=== PATIENT | female | born 1955 | race Caucasian/White ===

== ENCOUNTER 2016-10-19 07:58 | Day surgery (SDC) | payer MEDICAID ==
[2016-10-19] MEDS ORDERED: PROPOFOL 10 MG/ML VIAL IV ONE (14:00)
[2016-10-19] MEDS ORDERED: MIDAZOLAM HCL 2MG/2ML VIAL IV ONE (14:00)
[2016-10-19] MEDS ORDERED: LIDOCAINE 2% MDV (20MG/ML) 20ML VIAL IV ONE (14:00)
--- NOTE | 2016-10-24 11:19 | Operative Note ---
DATE OF SURGERY: 10/19/2016 OPERATION: COLONOSCOPY with random biopsy and biopsy of a colonic nodule. PREOPERATIVE DIAGNOSIS: Crohn's. POSTOPERATIVE DIAGNOSES: 1. Surgically shortened colon. 2. Colon nodule, no obvious inflammation noted. PROCEDURE: After informed consent was obtained from the patient, she was placed in the left lateral decubitus position in the endoscopy suite, sedated and monitored by the department of anesthesia. Digital rectal exam was unremarkable. A well-lubricated [id number] colonoscope was inserted into the rectum and advanced to the cecum. The colon appeared to be surgically shortened. The cecum was intubated at 35-40 cm. There were some scarring changes in the area of the cecum. Biopsies were obtained in 4 quadrants every 10 cm. In addition, there was a nodule at approximately 25 cm of unclear significance. This was biopsied. This appeared to be an inflammatory nodule. The remainder of the colon otherwise appeared unremarkable. No other abnormalities were noted. J-turn view was not performed given the narrowed rectal vault. RECOMMENDATIONS: We will await for results of tissue histology. In the meantime, we will have the patient scheduled for a CT enterogram given the fact she has had bouts of what sounds like small bowel obstruction. As always, thank you for allowing me to participate in the healthcare of your patients. CC: Dr. Khadar RICH
== END 2016-10-19 10:46 | disposition home or self-care (01) ==
LOC: HOP 07:58
PROVIDERS: ATTEND Internal Medicine Gastroenterology
DX: K63.89 Other specified diseases of intestine (principal); Z79.01 Long term (current) use of anticoagulants; Z90.49 Acquired absence of other specified parts of digestive tract; I10 Essential (primary) hypertension

== ENCOUNTER 2018-04-27 17:47 | Emergency (ER) | payer MEDICAID, MEDICARE ==
[2018-04-27 18:03] LABS: URINE APPEARANCE SL CLOUDY; URINE BILIRUBIN NEGATIVE (NEGATIVE); URINE BLOOD SMALL (NEGATIVE); URINE COLOR YELLOW; URINE GLUCOSE (UA) NEGATIVE (NEGATIVE); URINE KETONE NEGATIVE (NEGATIVE); URINE LEUKOCYTE ESTERASE MODERATE (NEGATIVE); URINE NITRITE NEGATIVE (NEGATIVE); URINE PROTEIN NEGATIVE (NEGATIVE); URINE UROBILINOGEN 0.2 E.U./dL (0.20 - 1.00)
--- NOTE | 2018-04-27 18:11 | Emergency Department Record ---
History of Present Illness - General Chief complaint: Flank Pain Stated complaint: UTI Time Seen by Provider: 04/27/18 18:03 Source: Patient Mode of Arrival: Ambulatory Limitations: No limitations - History of Present Illness Initial comments: 63yo female presents with recurrent frequency and discomfort with urination. She has a history of multiple recurrent UTI's in the last year. She has been on antibiotics in the last month. She admits she only took the Bactrim once daily instead of twice daily because she get diarrhea from most antibiotics. She did complete a one week course of Bactrim once daily. The symptoms never completely resolved. She has had some left flank pain for about 5-6 months. She had an US in December that was negative of the renals. Her most recent urine culture earlier in March was positive for Klebsiella. NO fevers or chills. No nausea or vomiting. She is on Elizabeth for Crohn's and Coumadin. She has normal appetite. PCP is the [facility]. MD Complaint: Dysuria Onset/Timin -: Days(s) Radiation: L flank Severity: Moderate Severity scale (1-10): 7 Quality: Aching Consistency: Constant Improves with: None Worsens with: Urination - Related Data Home Medications Medication Instructions Recorded Confirmed Last Taken Metoprolol Tartrate 1 tab PO DAILY 04/27/18 04/27/18 04/27/18 Previous Rx's Medication Instructions Recorded Cephalexin [Keflex] 500 mg PO TID #30 cap 04/27/18 Allergies Allergy/AdvReac Type Severity Reaction Status Date / Time promethazine HCl Allergy Severe DIFFICULTY Verified 04/27/18 17:56 [From Phenergan] BREATHING clindamycin Allergy Mild RASH Verified 04/27/18 17:56 erythromycin base Allergy Mild RASH & Verified 04/27/18 17:56 stomach cramps Sulfa (Sulfonamide Allergy Mild RASH Verified 04/27/18 17:56 Antibiotics) tetracycline Allergy Mild rash & Verified 04/27/18 17:56 stomach cramps epinephrine AdvReac Severe PROLONGED Verified 04/27/18 17:56 TACHYCARDIA ciprofloxacin [From Cipro] AdvReac Intermediate VOMITING Verified 04/27/18 17:56 ciprofloxacin HCl AdvReac Intermediate VOMITING Verified 04/27/18 17:56 [From Cipro] metronidazole [From Flagyl] AdvReac Intermediate VOMITING Verified 04/27/18 17: 56 ketorolac tromethamine AdvReac Mild NAUSEA Verified 04/27/18 17:56 [From Toradol] Travel Screening - Travel/Exposure Within Last 30 Days Have you traveled within the last 30 days?: No Review of Systems Constitutional: Denies: Chills, Fever, Weakness Eyes: Denies: Eye discharge ENT: Denies: Congestion Respiratory: Denies: Cough, Dyspnea, Hemoptysis, Stridor, Wheezes Cardiovascular: Denies: Chest pain, Palpitations, Syncope Endocrine: Denies: Fatigue Gastrointestinal: Reports: Abdominal pain. Denies: Diarrhea, Nausea, Vomiting Genitourinary: Reports: Dysuria, Frequency. Denies: Hematuria Musculoskeletal: Reports: As per HPI, Back pain Skin: Denies: Bruising, Change in color, Rash Neurological: Denies: Headache Psychiatric: Denies: Anxiety Past Medical History - SOCIAL HISTORY Smoking Status: Never smoker Alcohol Use: Occasional Drug Use: None - RESPIRATORY Hx Respiratory Disorders: Yes Hx COPD: Yes ("mild") - CARDIOVASCULAR Hx Cardio Disorders: Yes Hx Deep Vein Thrombosis: Yes (1994 in heart, chanelle filter -> no problems since) Hx Hypertension: Yes Hx Irregular Heartbeat: Yes ("beats fast and then slows down") Hx Palpitations: Yes Comment:: "bicuspid aortic valve" - NEURO Hx Neuro Disorders: Yes Hx Headaches: Yes (OCCULAR MIGRAINES) - GI Hx GI Disorders: Yes Hx Abdominal Pain: Yes Hx Crohn's Disease: Yes Hx Reflux: Yes Hx Nausea/Vomiting: Yes Hx Rectal Bleeding: Yes Comment:: CONSTIPATION - Hx Genitourinary Disorders: Yes Hx UTI: Yes - ENDOCRINE Hx Endocrine Disorders: Yes Hx Thyroid Disease: Yes (nodules) - MUSCULOSKELETAL Hx Musculoskeletal Disorders: Yes Hx Arthritis: Yes (Rheumatoid) Hx Musculoskeletal Disease: Yes (DDD) Comment:: Rauynauds - PSYCH Hx Psych Problems: Yes Hx Anxiety: Yes - HEMATOLOGY/ONCOLOGY Hx Hematology/Oncology Disorders: Yes Hx Anemia: Yes (iron infusion in 2013) Hx Blood Transfusions: Yes (07/2010) Hx Blood Transfusion Reaction: No Family Medical History Any Significant Family History?: Yes Hx Cancer: Grandparents *Cancer Comment: colon Hx Dementia: Mother Hx Diabetes: Grandparents Hx Stroke: Mother Physical Exam - General General Appearance: Alert, Oriented x3, Cooperative, Other (Well appearing) Limitations: No limitations - Head Head exam: Atraumatic, Normal inspection - Eye Eye exam: Normal appearance. negative: Conjunctival injection - ENT ENT exam: Normal exam, Mucous membranes moist Ear exam: Normal external inspection Nasal Exam: Normal inspection Mouth exam: Normal external inspection - Neck Neck exam: Normal inspection - Respiratory Respiratory exam: Normal lung sounds bilaterally. negative: Respiratory distress - Cardiovascular Cardiovascular Exam: Regular rate, Normal rhythm, Normal heart sounds - GI/Abdominal GI/Abdominal exam: Soft. negative: Guarding, Tenderness - Rectal Rectal exam: Deferred - exam: Deferred - Extremities Extremities exam: Normal inspection, Full ROM, Normal capillary refill. negative: Tenderness - Back Back exam: Reports: CVA tenderness (L) - Neurological Neurological exam: Alert, Oriented X3 - Psychiatric Psychiatric exam: Normal affect, Normal mood Course Vital Signs 04/27/18 17:57 Temperature 97.6 F Pulse Rate 91 H Respiratory 20 Rate Blood Pressure 122/77 Pulse Ox 100 - Reevaluation(s) Reevaluation #1: 04/27/18 18:11 EMR reviewed US negative in February UCx in March grew Klebsiella Pneumonia Sensitive to all but Ampicillin 04/27/18 18:37 The CBC was unremarkable for significant changes The US was LE positive with WBC's. No bacteria. The UA results may be altered due to her recent antibiotic use that was incomplete at only once daily dosing. 04/27/18 18:51 No changes on the BMP INR is 2.9 04/27/18 21:14 We discussed the results and plan of care for antibiotics, antibiotic compliance , very close follow up and reasons to be seen immediately. She is well aware of her medications causing immune depression and coumadin changes on antibiotics. She will call her doctor on Sunday. She is very aware that she will need to be seen immediately if worse, fever, vomiting or any new concerns Medical Decision Making - Lab Data Result diagrams: 04/27/18 18:16 04/27/18 18:16 Lab Results 04/27/18 Range/Units 17:51 Urine Color Yellow Urine Appearance Sl cloudy Urine pH 7.0 (5.0-8.0) Ur Specific [place] 1.010 (1.002-1.030) Urine Protein Negative (NEGATIVE) Urine Glucose (UA) Negative (NEGATIVE) Urine Ketones Negative (NEGATIVE) Urine Blood Small H (NEGATIVE) Urine Nitrite Negative (NEGATIVE) Urine Bilirubin Negative (NEGATIVE) Urine Urobilinogen 0.2 (0.20 - 1.00) E.U./dL Ur Leukocyte Esterase Moderate H (NEGATIVE) Disposition Disposition: Discharge Clinical Impression: Urinary tract infection Qualifiers: Urinary tract infection type: site unspecified Hematuria presence: without hematuria Qualified Code(s): N39.0 - Urinary tract infection, site not specified Disposition: Home, Self-Care Condition: (1) Good Instructions: Urinary Tract Infection in Women (ED), Flank Pain (ED) Additional Instructions: Return or be seen immediately if worse, fever, pain, vomiting Take the medication as directed Call your doctor on Sunday to confirm the urology follow up referral Check your INR first of the week with Howard in the pharmacy Prescriptions: Cephalexin [Keflex] 500 mg PO TID #30 cap Forms: Patient Portal Access Time of Disposition: 19:56 Quality - Quality Measures Quality Measures: N/A - Blood Pressure Screening Does Patient Have Any of the Following: No Blood Pressure Classification: Pre-Hypertensive BP Reading Systolic Measurement: 120 Diastolic Measurement: 80 Screening for High Blood Pressure: < Pre-Hypertensive BP, F/U Documented > [ [id number]] Pre-Hypertensive Follow-up Interventions: Referral to alternative/primary care provider.
[2018-04-27 18:24] LABS: BASO % 0.4 % (0-6); GRAN % 60.9 % (47-80); HEMATOCRIT 38.4 % (35.0-47.0); HEMOGLOBIN 12.7 gm/dl (11.6-16.0); LYMPH % 30.4 % (16-45); MEAN CELL VOLUME 97.2 fl (81-97); MEAN CORPUSCULAR HEMOGLOBIN 32.2 pg (27-33); MEAN CORPUSCULAR HGB CONC 33.1 g/dl (32-36); MEAN PLATELET VOLUME 10.1 fl (7.4-10.4); MONO % 7.3 % (0-9); PLATELET COUNT 323 K/uL (130-400); RED BLOOD COUNT 3.95 M/uL (3.80-5.40); RED CELL DISTRIBUTION WIDTH 12.5 % (11.5-14.5); WHITE BLOOD COUNT W/O DIFF 7.8 K/uL (4.2-12.2)
[2018-04-27 18:25] LABS: URINE BACTERIA NONE SEEN; URINE EPITHELIAL CELLS 0 - 2 (FEW); URINE RBC 0 - 2 (NONE SEEN)
[2018-04-27 18:35] LABS: INR 2.9; PROTHROMBIN TIME (PATIENT) 28.7 SECONDS (9.5-12.1)
[2018-04-27 18:38] LABS: BLOOD UREA NITROGEN 16 mg/dL (8-23); CREATININE 0.8 mg/dL (0.5-0.9); EST GLOMERULAR FILTRATION RATE > 60 mL/min
[2018-04-27 18:41] LABS: GLUCOSE,RANDOM 90 mg/dL (74-109)
[2018-04-27] MEDS ORDERED: CEPHALEXIN 500 MG CAPSULE PO STA ×2 (19:54)
--- NOTE | 2018-04-29 10:35 | CT SCAN REPORT ---
EXAM: CT OF THE ABDOMEN AND PELVIS WITHOUT IV CONTRAST HISTORY: LEFT FLANK PAIN. TECHNIQUE: CT of the abdomen and pelvis without IV contrast was obtained. Comparison: CT of the abdomen and pelvis 10/20/16. FINDINGS: The lung bases show minimal linear bands of scar in the left lower lobe. Limited evaluation of the solid organs without intravenous contrast. The liver has upper normal size. The spleen has normal size. No peripancreatic inflammatory changes. The kidneys have normal size. No renal calculi, hydronephrosis, or perinephric fat stranding. No stones in the ureters. No stones in the urinary bladder. Post surgical changes are again seen in the bowel with ileocolic anastomosis in the mid abdomen. No abnormal bowel dilatation. An inferior vena cava filter is again seen. No ascites or adenopathy. The bony structures show mild degenerative changes of the spine. IMPRESSION: 1. NO EVIDENCE OF UROLITHIASIS OR OBSTRUCTIVE UROPATHY. 2. POST SURGICAL CHANGES OF BOWEL RESECTION ARE SIMILAR TO PREVIOUS EXAMINATION. JOB NUMBER: [id number] [facility]
== END 2018-04-27 20:05 | disposition home or self-care (01) ==
LOC: ER 17:47
DX: N39.0 Urinary tract infection, site not specified (principal); R30.0 Dysuria; R10.9 Unspecified abdominal pain; I10 Essential (primary) hypertension
CPT/HCPCS: 74176; 80048; 81001; 85025; 85610; 99283; 99284

== ENCOUNTER 2018-06-12 06:52 | Day surgery (SDC) | payer MEDICARE, MEDICAID ==
[2018-06-12] MEDS ORDERED: LIDOCAINE 1% W/EPI 1:200,000 MPF 30ML SQ ONE (06:53)
[2018-06-12] MEDS ORDERED: LIDOCAINE 2% MDV (20MG/ML) 20ML VIAL IV ONE (06:53)
[2018-06-12] MEDS ORDERED: FENTANYL PF 100MCG/2ML VIAL IV ONE (06:53)
[2018-06-12] MEDS ORDERED: ONDANSETRON HCL IV 4 MG/2 ML VIAL IVP ONE (06:53)
[2018-06-12] MEDS ORDERED: PROPOFOL 10 MG/ML VIAL IV ONE (06:53)
[2018-06-12] MEDS ORDERED: DEXAMETHASONE PRESERVATIVE FREE 10MG/ML VIAL IV ONE (06:53)
[2018-06-12] MEDS ORDERED: MIDAZOLAM HCL 2MG/2ML VIAL IV ONE (06:53)
[2018-06-12] MEDS ORDERED: BUPIVACAINE 0.5% (5MG/ML) PF 30ML VIAL IVP ONE (06:53)
[2018-06-12] MEDS ORDERED: BUPIVACAINE 0.5% W/EPI MPF 30 ML VIAL IVP ONE (06:53)
--- NOTE | 2018-06-13 17:11 | Operative Note - Ferro ---
DATE OF SURGERY: 06/12/18 PRIMARY: DR. DE LA CRUZ. PREOPERATIVE DIAGNOSES: 1. LUMBAR SPONDYLOSIS WITHOUT MYELOPATHY, ICD-10 CODE = M47.816. 2. ROTOSCOLIOSIS THORACIC AND LUMBAR SPINE, ICD-10 CODE = M41.25. OPERATION: FLUOROSCOPICALLY-GUIDED INFILTRATIONAL BLOCK BILATERAL LUMBAR FACETS 3-4, 4-5, AND 5-1. SURGEON: KAT BACON D.O. ANESTHESIA: LOCAL WITH SEDATION. ANESTHESIA PROVIDER: PATY WYMAN CRNA. PROCEDURE: Intravenous line, vital sign monitoring, IV sedation, prepped, draped, sterile technique. Lumbar facet levels in the area of pain were identified and marked 3-4, 4-5, and 5-1 bilateral. Each one of these points on the skin infiltrated. A 22-gauge, 3.5 inch needle into the facet with 1 mL of 0.5% Marcaine and Dexamethasone injected; this was repeated bilaterally. All areas cleaned. Topical antibiotic. Sterile dressing applied. We will monitor and evaluate. cc: Dr. De La Cruz JOB NUMBER: [id number] [facility]
== END 2018-06-12 09:00 | disposition home or self-care (01) ==
LOC: SUR 06:52
PROVIDERS: ATTEND Pain Medicine Interventional Pain Medicine
DX: M47.816 Spondylosis without myelopathy or radiculopathy, lumbar region (principal); M41.25 Other idiopathic scoliosis, thoracolumbar region; I10 Essential (primary) hypertension; Z79.01 Long term (current) use of anticoagulants; M06.9 Rheumatoid arthritis, unspecified; K50.90 Crohn's disease, unspecified, without complications; J44.9 Chronic obstructive pulmonary disease, unspecified; Z86.718 Personal history of other venous thrombosis and embolism
CPT/HCPCS: 01936; 64493; 64494; 64495; J2405; J1100; J3010

== ENCOUNTER 2018-08-14 06:23 | Day surgery (SDC) | payer MEDICARE, MEDICAID ==
[2018-08-14] MEDS ORDERED: DEXAMETHASONE PRESERVATIVE FREE 10MG/ML VIAL IV ONE (06:24)
[2018-08-14] MEDS ORDERED: MIDAZOLAM HCL 2MG/2ML VIAL IV ONE (06:24)
[2018-08-14] MEDS ORDERED: FENTANYL PF 100MCG/2ML VIAL IV ONE (06:24)
[2018-08-14] MEDS ORDERED: PROPOFOL 10 MG/ML VIAL IV ONE (06:24)
[2018-08-14] MEDS ORDERED: ONDANSETRON HCL IV 4 MG/2 ML VIAL IVP ONE (06:24)
[2018-08-14] MEDS ORDERED: BUPIVACAINE 0.5% W/EPI MPF 30 ML VIAL IVP ONE (06:24)
[2018-08-14] MEDS ORDERED: LIDOCAINE 1% W/EPI 1:200,000 MPF 30ML SQ ONE (06:24)
[2018-08-14] MEDS ORDERED: LIDOCAINE 2% MDV (20MG/ML) 20ML VIAL IV ONE (06:24)
--- NOTE | 2018-08-16 14:02 | Operative Note ---
DATE OF SURGERY: 08/14/2018. PRIMARY CARE PHYSICIAN: Leonardo Crespo M.D. PREOPERATIVE DIAGNOSIS: 1. LUMBAR SPONDYLOSIS WITHOUT MYELOPATHY, ICD-10 CODE M47.816. 2. ROTOSCOLIOSIS OF THE THORACOLUMBAR SPINE, MODERATELY SEVERE, ICD-10 CODE M41.25. PREOPERATIVE DIAGNOSIS: 1. LUMBAR SPONDYLOSIS WITHOUT MYELOPATHY, ICD-10 CODE M47.816. 2. ROTOSCOLIOSIS OF THE THORACOLUMBAR SPINE, MODERATELY SEVERE, ICD-10 CODE M41.25. PROCEDURE: Radiofrequency rhizotomy was performed of the bilateral lumbar facets at 3-4, 4- 5, and 5-1. ANESTHESIA: Local sedation. ANESTHESIA PROVIDER: Monico Fernandez CRNA. INDICATIONS: This patient presents with primary back pain. Examination shows tenderness in the lumbar spine. Range of motion does cause pain to the back with extension. Diagnostics show rotoscoliosis and extensive spondylosis. A facet series provided 75 percent relief. Due to the failure of therapy and the success of the facet series, the patient presents today for rhizotomy for more long-term relief. DESCRIPTION OF PROCEDURE: Intravenous lines, vital sign monitoring, and intravenous sedation. Prepped and draped with sterile technique. Under imaging the facet levels at 3-4, 4-5, and 5-1 bilaterally were identified, and each one of these points on the skin was infiltrated. A 20-gauge rhizotomy cannula was positioned. Stimulation trial was conducted, and rhizotomy burn was performed at 80 degrees for 90 seconds. Local with anti-inflammatory into the sites. Topical antibiotic and sterile dressing applied. Will monitor and evaluate. cc: Kanwal Jarrell NP Job Number: [id number] [facility]
== END 2018-08-14 09:45 | disposition home or self-care (01) ==
LOC: SUR 06:23
PROVIDERS: ATTEND Pain Medicine Interventional Pain Medicine
DX: M47.816 Spondylosis without myelopathy or radiculopathy, lumbar region (principal); M41.25 Other idiopathic scoliosis, thoracolumbar region; I10 Essential (primary) hypertension; M06.9 Rheumatoid arthritis, unspecified; K50.90 Crohn's disease, unspecified, without complications; Z79.01 Long term (current) use of anticoagulants; J44.9 Chronic obstructive pulmonary disease, unspecified; I82.409 Acute embolism and thrombosis of unspecified deep veins of unspecified lower extremity
CPT/HCPCS: 64635; 64636 ×2; 01936; J2405; J1100; J3010

== ENCOUNTER 2018-10-09 05:50 | Day surgery (SDC) | payer MEDICARE, MEDICAID ==
[2018-10-09] MEDS ORDERED: ONDANSETRON HCL IV 4 MG/2 ML VIAL IVP ONE (05:51)
[2018-10-09] MEDS ORDERED: LIDOCAINE 2% MDV (20MG/ML) 20ML VIAL IV ONE (05:51)
[2018-10-09] MEDS ORDERED: FENTANYL PF 100MCG/2ML VIAL IV ONE (05:51)
[2018-10-09] MEDS ORDERED: MIDAZOLAM HCL 2MG/2ML VIAL IV ONE (05:51)
[2018-10-09] MEDS ORDERED: RINGERS SOLUTION,LACTATED 1,000 ML IV ONE (06:14)
[2018-10-09] MEDS ORDERED: BUPIVACAINE 0.5% W/EPI MPF 30 ML VIAL SQ ONE (07:45)
[2018-10-09] MEDS ORDERED: LIDOCAINE 1% W/EPI 1:200,000 MPF 30ML SQ ONE (07:45)
[2018-10-09] MEDS ORDERED: BUPIVACAINE 0.25% PF (2.5MG/ML) 10ML VIAL IM ONE (07:45)
[2018-10-09] MEDS ORDERED: DEXAMETHASONE PRESERVATIVE FREE 10MG/ML VIAL SQ ONE (07:47)
--- NOTE | 2018-10-09 15:01 | Operative Note ---
DATE OF SURGERY: 10/09/2018 PREOPERATIVE DIAGNOSIS: Left lumbar radiculopathy, ICD10 code M54.16 and M54.17. OPERATION: Fluoroscopic-guided left transforaminal selective segment portal injection L4-5 and L5-S1. INDICATION: This patient presents with pain which is left leg at the hip and butt cheek. Diagnostics show a 4-5, 5-1 disc. PROCEDURE: Intravenous line, vital sign monitoring, IV sedation. Prepped and draped in sterile technique. On imaging, lumbar foraminal opening on the left at 4-5 and 5-1 consists of pattern of pain infiltrated. Two separate 20-gauge needles, one each foraminal opening, 5 mL of 0.125% Marcaine with dexamethasone injected. Needle removed. Back cleaned. Topical antibiotic. Sterile dressing applied. We will monitor and evaluate. CC: BARBIE Burt MD MTDD
== END 2018-10-09 08:30 | disposition home or self-care (01) ==
LOC: SUR 05:50
PROVIDERS: ATTEND Pain Medicine Interventional Pain Medicine
DX: M54.16 Radiculopathy, lumbar region (principal); M54.17 Radiculopathy, lumbosacral region; I10 Essential (primary) hypertension; J44.9 Chronic obstructive pulmonary disease, unspecified; M06.9 Rheumatoid arthritis, unspecified; K50.90 Crohn's disease, unspecified, without complications; Z79.01 Long term (current) use of anticoagulants; I82.409 Acute embolism and thrombosis of unspecified deep veins of unspecified lower extremity
CPT/HCPCS: 64483; 64484; 01936; Q9967; J2405; J1100; J3010; J7120

== ENCOUNTER 2018-12-19 12:55 | Day surgery (SDC) | payer MEDICARE, MEDICAID ==
[2018-12-19] MEDS ORDERED: PROPOFOL 10 MG/ML VIAL IV ONE (12:56)
[2018-12-19] MEDS ORDERED: LIDOCAINE 2% MDV (20MG/ML) 20ML VIAL IV ONE (12:56)
[2018-12-19] MEDS ORDERED: MIDAZOLAM HCL 2MG/2ML VIAL IV ONE (12:56)
--- NOTE | 2018-12-20 17:30 | Operative Note ---
DATE: 12/19/2018 OPERATION: COLONOSCOPY with serial biopsy. PREOPERATIVE DIAGNOSIS: Personal history of Crohn disease. POSTOPERATIVE DIAGNOSIS: Surgically shortened colon, otherwise normal exam. PROCEDURE: After informed consent was obtained from the patient, she was placed in the left lateral decubitus position in the endoscopy suite, sedated and monitored by the department of anesthesia. Digital rectal exam was unremarkable. A well-lubricated [id number] colonoscope was inserted into the rectum and advanced to the cecum. The ileocecal valve was identified and cannulated revealing a normal-appearing distal terminal ileum. Cecum, cecal bulb, ascending colon, transverse colon, descending colon, and sigmoid colon that were remaining were unremarkable. Appeared to be a prior resection. The colocolonic anastomosis appeared unremarkable. There were no inflammatory changes seen throughout the ileum or remaining colon. Biopsies were obtained randomly throughout the colon every 10 cm in 4-quadrant fashion. J-turn views were not performed given some rectal shortening. The rectal ampulla was deflated, and the endoscope was removed. RECOMMENDATIONS: The patient should resume and continue her Humira which seems to be providing her with control of her colonic inflammation. I would recommend repeat colonoscopy in 2 years if no dysplasia is found on these recent biopsies. As always, thank you for allowing me to participate in the healthcare of your patients. LAYLA
== END 2018-12-19 14:50 | disposition home or self-care (01) ==
LOC: HOP 12:55
PROVIDERS: ATTEND Internal Medicine Gastroenterology
DX: Z09 Encounter for follow-up examination after completed treatment for conditions other than malignant neoplasm (principal); Z86.010 Personal history of colon polyps; Z87.19 Personal history of other diseases of the digestive system; I10 Essential (primary) hypertension; G25.81 Restless legs syndrome